=== PATIENT | female | born 1970 | race Caucasian/White ===

== ENCOUNTER 2016-06-17 09:19 | Outpatient (CLI) | payer SELFPAY ==
--- NOTE | 2016-06-17 09:56 | DIAGNOSTIC IMAGING REPORT ---
PROCEDURE: XR SACRUM AND COCCYX INDICATION: FALL 06/07, initial encounter TECHNIQUE: Three views. COMPARISON: None. FINDINGS: Anterior angulation of the distal coccygeal segment but no evidence of a fracture. IMPRESSION: 1. No evidence of a fracture.
== END 2016-06-17 23:00 ==
LOC: XR SRH 09:19
DX: S39.92XA Unspecified injury of lower back, initial encounter (principal)